=== PATIENT | male | born 1950 | race African-American/Black ===

== ENCOUNTER 2023-02-26 13:37 | Outpatient (REF) | payer OTHER, SELFPAY ==
[2023-02-26 14:41] LABS: Syphilis Screen Nonreactive (Nonreactive)
[2023-02-26 14:57] LABS: Folate 8.5 ng/mL (> or = 4.0); Vitamin B12 1141 pg/mL (200-900)
== END 2023-02-26 13:38 | disposition home or self-care (01) ==
LOC: HO.LAB 13:37
PROVIDERS: PCP Internal Medicine; Visit Provider Psychiatry & Neurology Neurology
DX: G30.9 Alzheimer's disease, unspecified (principal)
CPT/HCPCS: 36415; 82607; 82746; 86780